=== PATIENT | female | born 1945 | race Caucasian/White ===

== ENCOUNTER 2017-06-01 20:02 | Inpatient (IN) | payer MEDICARE, BC ==
[~2017-06-01] VITALS: Ht 162.6 cm; Wt 72.7 kg
[~2017-06-01 20:02] MED LIST: ACET-2319 PO; AMIT-189 PO; ATOR20TA66 PO; FERR324T4 PO; FURO-149 PO; LEVO125T8 PO; POTA8CAP9 PO; WARF-55 PO
[2017-06-01] MEDS ORDERED: normal saline 1000ML IV soln IVB ONE (21:05)
[2017-06-01] MEDS ORDERED: acetaminophen 325mg tablet PO PRN (21:35)
[2017-06-01] MEDS ORDERED: mag hydrox/Alum hydrox/simeth 30ml oral suspension PO PRN (21:35)
[2017-06-01] MEDS ORDERED: ondansetron/PF 4mg/2ml inj IV PRN (21:35)
[2017-06-01] MEDS ORDERED: magnesium hydroxide 30ml (MOM) UD suspension PO PRN (21:35)
[2017-06-01] MEDS ORDERED: acetaminophen 650mg rectal suppository RC PRN (21:35)
[2017-06-01] MEDS: normal saline 1000ml 1,000 ML IV SCH (21:43)
[2017-06-01] MEDS: acetaminophen 325mg tablet PO PRN (23:42)
[2017-06-01] MEDS: ACYCLOVIR IV SCH (23:42)
[2017-06-01] MEDS: NORMAL SALINE IV SCH (23:42)
[2017-06-02] MEDS ORDERED: acyclovir 1 GM inj IV SCH
[2017-06-02] MEDS ORDERED: TRAM50TA2 (07:04)
[2017-06-02 07:10] LABS: BASOPHILS # (AUTO) 0.1 X10'3 (0-0.2); BASOPHILS % (AUTO) 0.7 % (0-1); EOSINOPHILS # (AUTO) 0.2 X10'3 (0-0.9); EOSINOPHILS % (AUTO) 2.2 % (0-6); HEMATOCRIT 28.4 % (35.0-45.0); HEMOGLOBIN 9.2 g/dl (12.0-16.0); LYMPHOCYTES # (AUTO) 1.1 X10'3 (1.1-4.8); LYMPHOCYTES % (AUTO) 11.9 % (21-51); MEAN CORPUSCULAR HEMOGLOBIN 27.5 PG (27.0-31.0); MEAN CORPUSCULAR HGB CONC 32.5 % (33.0-36.5); MEAN CORPUSCULAR VOLUME 84.5 FL (78-98); MEAN PLATELET VOLUME 7.2 FL (7.4-10.4); MONOCYTES # (AUTO) 0.5 X10'3 (0-0.9); MONOCYTES % (AUTO) 4.8 % (2-12); NEUTROPHILS # (AUTO) 7.6 X10'3 (1.8-7.7); NEUTROPHILS % (AUTO) 80.4 % (42-75); PLATELET COUNT 309 X10'3 (140-440); RED BLOOD COUNT 3.36 X10'6 (4.20-5.60); RED CELL DISTRIBUTION WIDTH 17.8 % (11.5-14.5); WHITE BLOOD COUNT 9.5 X10'3 (4.5-11.0)
[2017-06-02 07:30] LABS: INR 1.8 INR; PROTHROMBIN TIME 18.5 SECONDS (9.0-12.0)
[2017-06-02 07:35] LABS: ALBUMIN 2.9 G/DL (3.4-5.0); ANION GAP 9 (8-16); BLOOD UREA NITROGEN 14 MG/DL (7-18); BUN/CREATININE RATIO 25.9 (6.6-38.0); CALCIUM 8.5 MG/DL (8.5-10.1); CHLORIDE 108 MMOL/L (99-107); CREATININE 0.54 MG/DL (0.40-0.90); GLUCOSE 97 MG/DL (70-104); POTASSIUM 3.9 MMOL/L (3.5-5.1); SODIUM 141 MMOL/L (135-145); TOTAL CARBON DIOXIDE 23.6 MMOL/L (24-32); eGFR > 90 ML/MIN
[2017-06-02] MEDS: normal saline 1000ml 1,000 ML IV SCH ×2 (08:37→19:38)
[2017-06-02] MEDS: CefTRIAXone/D5W-Rocephin 1gm 50 ML IV SCH (08:38)
[2017-06-02] MEDS: ACYCLOVIR IV SCH ×3 (10:53→23:29)
[2017-06-02] MEDS: NORMAL SALINE IV SCH ×3 (10:53→23:29)
[2017-06-02] MEDS: ferrous sulfate 325mg tablet PO SCH ×2 (11:54→17:01)
[2017-06-02] MEDS: acetaminophen 325mg tablet PO PRN ×2 (11:54→21:35)
[2017-06-02] MEDS: levoTHYROXINE 125mcg tablet PO SCH (11:57)
[2017-06-02 19:30] VITALS: BP 149/63
[2017-06-02] MEDS: potassium chloride 8mEq ER tablet PO SCH (19:37)
[2017-06-02] MEDS: amitryptiline 50mg tablet PO SCH (20:50)
[2017-06-02] MEDS ORDERED: warfarin 5mg tablet PO SCH (21:00)
[2017-06-02 22:00] VITALS: BP 165/72
[2017-06-03 02:00] VITALS: BP 143/75
[2017-06-03 06:00] VITALS: BP 159/76
[2017-06-03 08:10] LABS: BASOPHILS % (AUTO) 0.2 % (0-1); EOSINOPHILS # (AUTO) 0.2 X10'3 (0-0.9); EOSINOPHILS % (AUTO) 2.4 % (0-6); HEMATOCRIT 29.8 % (35.0-45.0); HEMOGLOBIN 9.7 g/dl (12.0-16.0); LYMPHOCYTES # (AUTO) 0.9 X10'3 (1.1-4.8); LYMPHOCYTES % (AUTO) 9.4 % (21-51); MEAN CORPUSCULAR HEMOGLOBIN 27.5 PG (27.0-31.0); MEAN CORPUSCULAR HGB CONC 32.6 % (33.0-36.5); MEAN CORPUSCULAR VOLUME 84.2 FL (78-98); MEAN PLATELET VOLUME 7.3 FL (7.4-10.4); MONOCYTES # (AUTO) 0.4 X10'3 (0-0.9); MONOCYTES % (AUTO) 3.8 % (2-12); NEUTROPHILS # (AUTO) 7.9 X10'3 (1.8-7.7); NEUTROPHILS % (AUTO) 84.2 % (42-75); PLATELET COUNT 299 X10'3 (140-440); RED BLOOD COUNT 3.54 X10'6 (4.20-5.60); RED CELL DISTRIBUTION WIDTH 17.9 % (11.5-14.5); WHITE BLOOD COUNT 9.4 X10'3 (4.5-11.0)
[2017-06-03 08:18] LABS: INR 1.4 INR; PROTHROMBIN TIME 14.4 SECONDS (9.0-12.0)
[2017-06-03 08:20] LABS: ALBUMIN 3.2 G/DL (3.4-5.0); ANION GAP 12 (8-16); BLOOD UREA NITROGEN 10 MG/DL (7-18); BUN/CREATININE RATIO 20.4 (6.6-38.0); CHLORIDE 106 MMOL/L (99-107); CREATININE 0.49 MG/DL (0.40-0.90); GLUCOSE 105 MG/DL (70-104); POTASSIUM 4.4 MMOL/L (3.5-5.1); SODIUM 141 MMOL/L (135-145); TOTAL CARBON DIOXIDE 23.3 MMOL/L (24-32); eGFR > 90 ML/MIN
[2017-06-03] MEDS: CefTRIAXone/D5W-Rocephin 1gm 50 ML IV SCH (09:11)
[2017-06-03] MEDS: levoTHYROXINE 125mcg tablet PO SCH (09:11)
[2017-06-03] MEDS: ferrous sulfate 325mg tablet PO SCH ×3 (09:11→18:44)
[2017-06-03] MEDS: furosemide 40mg tablet PO SCH (09:11)
[2017-06-03] MEDS: ACYCLOVIR IV SCH ×2 (09:11→18:39)
[2017-06-03] MEDS: NORMAL SALINE IV SCH ×2 (09:11→18:39)
[2017-06-03] MEDS: atorvastatin 20mg tablet PO SCH (09:11)
[2017-06-03] MEDS: potassium chloride 8mEq ER tablet PO SCH ×2 (09:11→20:00)
[2017-06-03 09:16] VITALS: BP 159/67
[2017-06-03 10:00] VITALS: BP 162/66
[2017-06-03] MEDS: acetaminophen 325mg tablet PO PRN ×2 (13:17→21:58)
[2017-06-03] MEDS ORDERED: enoxaparin 60mg/0.6ml syringe SUBCUT SCH (17:50)
[2017-06-03 18:00] VITALS: BP 169/58
[2017-06-03] MEDS: normal saline 1000ml 1,000 ML IV SCH (18:43)
[2017-06-03] MEDS: lactobacillus rhamnosus 10,000 MMU CELLS/CAPSULE PO SCH (20:09)
[2017-06-03] MEDS: enoxaparin 40mg/0.4ml syringe SUBCUT SCH (20:10)
[2017-06-03] MEDS: enoxaparin 30mg/0.3ml syringe SUBCUT SCH (20:11)
[2017-06-03] MEDS ORDERED: warfarin 10mg tablet PO ONE (21:00)
[2017-06-03] MEDS: amitryptiline 50mg tablet PO SCH (21:59)
[2017-06-03 22:00] VITALS: BP 168/72
[2017-06-04] MEDS: ACYCLOVIR IV SCH (01:16)
[2017-06-04] MEDS: NORMAL SALINE IV SCH (01:16)
[2017-06-04 05:00] VITALS: BP 137/57
[2017-06-04 06:00] VITALS: BP 134/57
[2017-06-04 06:34] LABS: BASOPHILS % (AUTO) 0.3 % (0-1); EOSINOPHILS # (AUTO) 0.3 X10'3 (0-0.9); EOSINOPHILS % (AUTO) 4.6 % (0-6); HEMATOCRIT 27.7 % (35.0-45.0); LYMPHOCYTES % (AUTO) 15.6 % (21-51); MEAN CORPUSCULAR HEMOGLOBIN 27.2 PG (27.0-31.0); MEAN CORPUSCULAR HGB CONC 32.5 % (33.0-36.5); MEAN CORPUSCULAR VOLUME 83.9 FL (78-98); MEAN PLATELET VOLUME 7.3 FL (7.4-10.4); MONOCYTES # (AUTO) 0.4 X10'3 (0-0.9); MONOCYTES % (AUTO) 5.8 % (2-12); NEUTROPHILS % (AUTO) 73.7 % (42-75); PLATELET COUNT 273 X10'3 (140-440); RED CELL DISTRIBUTION WIDTH 17.6 % (11.5-14.5); WHITE BLOOD COUNT 6.7 X10'3 (4.5-11.0)
[2017-06-04 06:47] LABS: INR 1.4 INR; PROTHROMBIN TIME 13.9 SECONDS (9.0-12.0)
[2017-06-04 06:50] LABS: ALBUMIN 2.9 G/DL (3.4-5.0); ANION GAP 8 (8-16); BLOOD UREA NITROGEN 11 MG/DL (7-18); CALCIUM 8.6 MG/DL (8.5-10.1); CHLORIDE 106 MMOL/L (99-107); CREATININE 0.55 MG/DL (0.40-0.90); GLUCOSE 106 MG/DL (70-104); POTASSIUM 3.7 MMOL/L (3.5-5.1); SODIUM 141 MMOL/L (135-145); eGFR > 90 ML/MIN
[2017-06-04] MEDS: potassium chloride 8mEq ER tablet PO SCH ×2 (08:26→20:00)
[2017-06-04] MEDS: ferrous sulfate 325mg tablet PO SCH ×3 (08:26→20:16)
[2017-06-04] MEDS: levoTHYROXINE 125mcg tablet PO SCH (08:26)
[2017-06-04] MEDS: lactobacillus rhamnosus 10,000 MMU CELLS/CAPSULE PO SCH ×2 (08:26→20:16)
[2017-06-04] MEDS: atorvastatin 20mg tablet PO SCH (08:26)
[2017-06-04] MEDS: acetaminophen 325mg tablet PO PRN ×3 (08:26→23:03)
[2017-06-04] MEDS: furosemide 40mg tablet PO SCH (08:26)
[2017-06-04] MEDS: enoxaparin 40mg/0.4ml syringe SUBCUT SCH ×2 (08:27→20:19)
[2017-06-04] MEDS: enoxaparin 30mg/0.3ml syringe SUBCUT SCH ×2 (08:27→20:18)
[2017-06-04] MEDS: CefTRIAXone/D5W-Rocephin 1gm 50 ML IV SCH (08:27)
[2017-06-04 10:00] VITALS: BP 125/56
[2017-06-04] MEDS: normal saline 1000ml 1,000 ML IV SCH (14:17)
[2017-06-04 18:00] VITALS: BP 116/71
[2017-06-04] MEDS: amitryptiline 50mg tablet PO SCH (20:15)
[2017-06-04] MEDS ORDERED: warfarin 4mg tablet PO ONE (21:00)
[2017-06-04 22:00] VITALS: BP 163/72
[2017-06-05 05:00] VITALS: BP 125/77
[2017-06-05] MEDS: acetaminophen 325mg tablet PO PRN ×3 (05:58→20:41)
[2017-06-05 06:04] LABS: BASOPHILS % (AUTO) 0.6 % (0-1); EOSINOPHILS # (AUTO) 0.3 X10'3 (0-0.9); EOSINOPHILS % (AUTO) 3.7 % (0-6); HEMATOCRIT 30.8 % (35.0-45.0); LYMPHOCYTES # (AUTO) 1.3 X10'3 (1.1-4.8); MEAN CORPUSCULAR HEMOGLOBIN 27.4 PG (27.0-31.0); MEAN CORPUSCULAR HGB CONC 32.5 % (33.0-36.5); MEAN CORPUSCULAR VOLUME 84.1 FL (78-98); MEAN PLATELET VOLUME 7.5 FL (7.4-10.4); MONOCYTES # (AUTO) 0.4 X10'3 (0-0.9); MONOCYTES % (AUTO) 5.3 % (2-12); NEUTROPHILS # (AUTO) 4.8 X10'3 (1.8-7.7); NEUTROPHILS % (AUTO) 71.4 % (42-75); PLATELET COUNT 290 X10'3 (140-440); RED BLOOD COUNT 3.66 X10'6 (4.20-5.60); RED CELL DISTRIBUTION WIDTH 17.5 % (11.5-14.5); WHITE BLOOD COUNT 6.8 X10'3 (4.5-11.0)
[2017-06-05 06:12] LABS: INR 1.4 INR; PROTHROMBIN TIME 14.4 SECONDS (9.0-12.0)
[2017-06-05 06:16] LABS: ALBUMIN 3.2 G/DL (3.4-5.0); ANION GAP 8 (8-16); BLOOD UREA NITROGEN 12 MG/DL (7-18); BUN/CREATININE RATIO 19.7 (6.6-38.0); CHLORIDE 104 MMOL/L (99-107); CREATININE 0.61 MG/DL (0.40-0.90); GLUCOSE 102 MG/DL (70-104); POTASSIUM 3.5 MMOL/L (3.5-5.1); SODIUM 141 MMOL/L (135-145); TOTAL CARBON DIOXIDE 28.9 MMOL/L (24-32); eGFR > 90 ML/MIN
[2017-06-05] MEDS: furosemide 40mg tablet PO SCH (08:19)
[2017-06-05] MEDS: ferrous sulfate 325mg tablet PO SCH ×3 (08:19→20:39)
[2017-06-05] MEDS: CefTRIAXone/D5W-Rocephin 1gm 50 ML IV SCH (08:19)
[2017-06-05] MEDS: enoxaparin 30mg/0.3ml syringe SUBCUT SCH ×2 (08:19→20:39)
[2017-06-05] MEDS: enoxaparin 40mg/0.4ml syringe SUBCUT SCH ×2 (08:19→20:39)
[2017-06-05] MEDS: levoTHYROXINE 125mcg tablet PO SCH (08:20)
[2017-06-05] MEDS: atorvastatin 20mg tablet PO SCH (08:20)
[2017-06-05] MEDS: potassium chloride 8mEq ER tablet PO SCH ×2 (08:20→20:00)
[2017-06-05] MEDS: lactobacillus rhamnosus 10,000 MMU CELLS/CAPSULE PO SCH ×2 (08:20→20:40)
[2017-06-05 10:00] VITALS: BP 178/61
[2017-06-05] MEDS: diatr meglu/diatrizoate 30ml oral sol.-(3 dose) bottle PO SCH ×3 (11:07→16:56)
[2017-06-05] MEDS: normal saline 1000ml 1,000 ML IV SCH (13:55)
[2017-06-05] MEDS ORDERED: iohexol 300mg/ml 100ml inj. ONE (15:17)
[2017-06-05 18:00] VITALS: BP 161/75
[2017-06-05] MEDS: amitryptiline 50mg tablet PO SCH (20:40)
[2017-06-05] MEDS ORDERED: warfarin 10mg tablet PO ONE (21:00)
[2017-06-05 22:00] VITALS: BP 134/62
[2017-06-05] MEDS ORDERED: levoFLOXACIN 750MG TABLET PO SCH (22:20)
[2017-06-05] MEDS ORDERED: methylPREDNISolone sod succ 125mg/2ml vial IV ONE (22:35)
[2017-06-05] MEDS ORDERED: ipratropium/albuterol 3ml nebule NEB PRN (22:35)
[2017-06-06] MEDS: normal saline 1000ml 1,000 ML IV SCH (04:10)
[2017-06-06] MEDS: acetaminophen 325mg tablet PO PRN ×3 (04:39→23:27)
[2017-06-06 06:00] VITALS: BP 159/73
[2017-06-06 06:19] LABS: BASOPHILS # (AUTO) 0.1 X10'3 (0-0.2); BASOPHILS % (AUTO) 1.5 % (0-1); EOSINOPHILS # (AUTO) 0.1 X10'3 (0-0.9); EOSINOPHILS % (AUTO) 1.4 % (0-6); HEMOGLOBIN 10.4 g/dl (12.0-16.0); LYMPHOCYTES # (AUTO) 0.9 X10'3 (1.1-4.8); LYMPHOCYTES % (AUTO) 11.2 % (21-51); MEAN CORPUSCULAR HEMOGLOBIN 27.2 PG (27.0-31.0); MEAN CORPUSCULAR HGB CONC 32.4 % (33.0-36.5); MEAN CORPUSCULAR VOLUME 84.1 FL (78-98); MEAN PLATELET VOLUME 7.7 FL (7.4-10.4); MONOCYTES # (AUTO) 0.1 X10'3 (0-0.9); MONOCYTES % (AUTO) 0.6 % (2-12); NEUTROPHILS # (AUTO) 6.6 X10'3 (1.8-7.7); NEUTROPHILS % (AUTO) 85.3 % (42-75); PLATELET COUNT 350 X10'3 (140-440); RED CELL DISTRIBUTION WIDTH 18.1 % (11.5-14.5); WHITE BLOOD COUNT 7.8 X10'3 (4.5-11.0)
[2017-06-06 06:49] LABS: ALBUMIN 3.5 G/DL (3.4-5.0); ANION GAP 6 (8-16); BLOOD UREA NITROGEN 14 MG/DL (7-18); BUN/CREATININE RATIO 18.9 (6.6-38.0); CALCIUM 9.6 MG/DL (8.5-10.1); CHLORIDE 102 MMOL/L (99-107); CREATININE 0.74 MG/DL (0.40-0.90); GLUCOSE 158 MG/DL (70-104); POTASSIUM 4.4 MMOL/L (3.5-5.1); SODIUM 139 MMOL/L (135-145); TOTAL CARBON DIOXIDE 30.6 MMOL/L (24-32); eGFR 78 ML/MIN
[2017-06-06 06:54] LABS: INR 1.5 INR; PROTHROMBIN TIME 15.6 SECONDS (9.0-12.0)
[2017-06-06] MEDS: atorvastatin 20mg tablet PO SCH (07:27)
[2017-06-06] MEDS: potassium chloride 8mEq ER tablet PO SCH ×2 (07:27→20:00)
[2017-06-06] MEDS: levoTHYROXINE 75mcg tablet PO SCH (07:28)
[2017-06-06] MEDS: lactobacillus rhamnosus 10,000 MMU CELLS/CAPSULE PO SCH ×2 (07:28→21:46)
[2017-06-06] MEDS: furosemide 40mg tablet PO SCH (07:28)
[2017-06-06] MEDS: enoxaparin 30mg/0.3ml syringe SUBCUT SCH ×2 (07:28→21:48)
[2017-06-06] MEDS: enoxaparin 40mg/0.4ml syringe SUBCUT SCH ×2 (07:29→21:47)
[2017-06-06] MEDS: ferrous sulfate 325mg tablet PO SCH ×3 (07:31→17:34)
[2017-06-06] MEDS ORDERED: methylPREDNISolone sod succ 125mg/2ml vial IV ONE (08:00)
[2017-06-06 10:00] VITALS: BP 162/69
[2017-06-06 15:00] VITALS: BP 163/60
[2017-06-06] MEDS ORDERED: warfarin 10mg tablet PO ONE (21:00)
[2017-06-06] MEDS: amitryptiline 50mg tablet PO SCH (21:50)
[2017-06-06 22:00] VITALS: BP 159/57
[2017-06-07 06:00] VITALS: BP 125/44
[2017-06-07 06:45] LABS: INR 2.3 INR; PROTHROMBIN TIME 23.3 SECONDS (9.0-12.0)
[2017-06-07] MEDS: furosemide 40mg tablet PO SCH (08:00)
[2017-06-07] MEDS: lactobacillus rhamnosus 10,000 MMU CELLS/CAPSULE PO SCH (08:56)
[2017-06-07] MEDS: potassium chloride 8mEq ER tablet PO SCH (08:57)
[2017-06-07] MEDS: ferrous sulfate 325mg tablet PO SCH ×2 (08:57→14:32)
[2017-06-07] MEDS: levoTHYROXINE 75mcg tablet PO SCH (08:57)
[2017-06-07] MEDS: atorvastatin 20mg tablet PO SCH (08:57)
[2017-06-07] MEDS: enoxaparin 30mg/0.3ml syringe SUBCUT SCH (08:58)
[2017-06-07] MEDS: enoxaparin 40mg/0.4ml syringe SUBCUT SCH (08:58)
[2017-06-07 10:00] VITALS: BP 145/51
[2017-06-07] MEDS: acetaminophen 325mg tablet PO PRN (11:00)
[2017-06-07] MEDS ORDERED: ENOX40DI11 SUBCUT (16:44)
[2017-06-07] MEDS ORDERED: warfarin 5mg tablet PO ONE ×2 (21:00)
== END 2017-06-07 17:48 | disposition home or self-care (01) | DRG 871 ==
LOC: ER 20:03 → ED HOLD 21:32 → ORTHO 4S 06-02 19:26
PROVIDERS: ADMIT Family Medicine; ATTEND Family Medicine
PROC: BW38YZZ Magnetic Resonance Imaging (MRI) of Head using Other Contrast (ICD-10-PCS; principal; 2017-06-02)
PROC: BW211ZZ Computerized Tomography (CT Scan) of Abdomen and Pelvis using Low Osmolar Contrast (ICD-10-PCS; 2017-06-05)
DX: A41.9 Sepsis, unspecified organism (principal); G93.41 Metabolic encephalopathy; I50.32 Chronic diastolic (congestive) heart failure; D64.9 Anemia, unspecified; E86.0 Dehydration; N39.0 Urinary tract infection, site not specified; B96.20 Unspecified Escherichia coli [E. coli] as the cause of diseases classified elsewhere; E78.5 Hyperlipidemia, unspecified; F32.9 Major depressive disorder, single episode, unspecified; E03.9 Hypothyroidism, unspecified; K52.9 Noninfective gastroenteritis and colitis, unspecified; Z95.2 Presence of prosthetic heart valve; Z88.6 Allergy status to analgesic agent; Z88.1 Allergy status to other antibiotic agents; Z88.5 Allergy status to narcotic agent; Z88.8 Allergy status to other drugs, medicaments and biological substances; Z79.899 Other long term (current) drug therapy; Z79.01 Long term (current) use of anticoagulants
CPT/HCPCS: 36415; 70551; 74177; 80048; 83605; 84443; 85025; 85610; 87040; 87070; 94760; 96360; 97110; 97116; 97162; 97530; 99285; A6213; J0133; J0696; J1650; J2930; J7030; Q9963; Q9967

== ENCOUNTER 2019-09-24 15:08 | Outpatient (CLI) | payer MEDICARE, BC ==
[~2019-09-24 15:08] MED LIST changes: +ENOX40DI11 SUBCUT; +POTA8CAP20 PO; -POTA8CAP9 PO; +TRAM50TA2
== END 2019-09-24 23:59 | disposition home or self-care (01) ==
LOC: RAD 15:08
PROVIDERS: ATTEND Surgery
DX: K21.9 Gastro-esophageal reflux disease without esophagitis (principal); R13.14 Dysphagia, pharyngoesophageal phase
CPT/HCPCS: 74230